=== PATIENT | female | born 1955 | race Caucasian/White ===

== ENCOUNTER 2021-10-17 15:15 | Outpatient (REF) | payer MEDICARE, MEDICAID, SELFPAY ==
--- NOTE | 2021-10-17 15:00 | ENDOMET_PTH ---
PATIENT: Tana Daniels LOC: [facility] U#:[id number] AGE/SX: 66/F ROOM: RE10/17/[address]: Deena Bhakta : 1955 BED: DIS: 10/17/2021 SPEC #: [id number] RECD: 10/17/21 17:15 STATUS: MARCE REQ #: [id number] TEODORA: 10/17/21 15:[address]: Deena Bhakta DEPT: Surgical Specimen RECD BY: Munira Chris ENTERED: 10/17/21 17:16 SP TYPE: Endomet OTHR DR: Shahab Roche Tissues: 1 - ENDOMETRIUM BX/DREW Procedures: GROSS AND MICRO LEVEL 4 Comments: [id number]
== END 2021-10-17 15:16 | disposition home or self-care (01) ==
LOC: LBN 15:15
PROVIDERS: PCP Physician Assistant; Visit Provider Obstetrics & Gynecology Gynecology
DX: N88.8 Other specified noninflammatory disorders of cervix uteri (principal)
CPT/HCPCS: 88305